=== PATIENT | female | born 1955 ===

== ENCOUNTER 2017-01-05 07:51 | Day surgery (SDC) | payer OTHER ==
[2014-05-01 08:24] VITALS: BMI 18.0
[2017-01-05] MEDS ORDERED: Lactated Ringer's 1,000 ML IV ONE (10:00)
--- NOTE | 2017-01-05 10:06 | CP.SDSHP ---
Same Day Surgery H & P - History Proposed Procedure: EGD Pre-Op Diagnosis: SEE NOTES - Previous Medical/Surgical History Cardiac: Hypertension Neuro: Other Misc: Other Pain: 4.Moderate Pain Previous Surgical History: HYSTRECTOMY - Allergies Allergies: Allergies No Known Allergies Allergy (Verified 01/05/17 08:41) - Physical Exam General Appearance: N Vital Signs: Vital Signs 01/05/17 08:30 Temperature 97.3 F L Pulse Rate 60 Respiratory 18 Rate Blood Pressure 144/81 O2 Sat by Pulse 96 Oximetry Mental Status: Alert & Oriented x3 Neuro: WNL Heart: Other Lungs: WNL GI: WNL - {Optional Preform as Required} Breast: WNL Abdomen: Other Rectal: Other Integument: WNL : WNL Ortho: WNL ENT: WNL - Impression Pt. Evaluated Today:Candidate for Anesthesia & Procedure: Yes - Date & Time Time: 10:06 Short Stay Discharge - Short Stay Discharge Admitting Diagnosis/Reason for Visit: FUNCTIONAL DYSPEPSIA Disposition: HOME/ ROUTINE
[2017-01-05] MEDS ORDERED: Pantoprazole 40 mg EC Tab PO ONE (10:07)
[2017-01-05] MEDS ORDERED: Propofol 10 mg/ml Inj (20 ML) ONE (10:09)
[2017-01-05] MEDS ORDERED: Lactated Ringer's 500 ML IV SCH (10:15)
[2017-01-05 10:48] VITALS: TEMP 97.1; O2SAT 100
[2017-01-05 11:19] VITALS: BP 120/96; PULSE 74; RESP 16
== END 2017-01-05 11:33 | disposition home or self-care (01) ==
LOC: C.ENDO 07:51
PROVIDERS: ATTEND Specialist
DX: K30 Functional dyspepsia (principal); K20.9 Esophagitis, unspecified; K29.70 Gastritis, unspecified, without bleeding
CPT/HCPCS: 43239; 88305; 88342; J2704; J7120